=== PATIENT | female | born 1960 | race Caucasian/White ===

== ENCOUNTER 2016-10-30 19:30 | Inpatient (IN) | payer OTHER ==
[~2016-10-30] VITALS: Ht 170.2 cm; Wt 55.1 kg
[~2016-10-30 19:30] MED LIST: AMITIZA24 MICROGR PO; AMITIZA8 MICROGRA PO; Bactrim,Septra DS 80 PO; CELEXA40 MG PO; Claritin,Alavart PO; DECADRON1 MG PO; DITROPAN XL10 MG PO; ENDOCET 5-3251 EACH PO; ESTRACE2 MG PO; FOLIC ACID1 MG PO; HYDROCODONE-AP1 EACH PO; Habitrol,Nicoderm CQ TD; KAPIDEX30 MG PO; LEVO-T125 MCG PO; LEVOTHYROXINE; LIDOCAINE700 MG TD; LYRICA150 MG PO; Levothroid,Synthroid PO; MAGNESIUM400 M1 PO; Mag-Ox PO; NEXIUM; NEXIUM40 MG PO; NORCO 10/3251 TABLET PO; Norco 10/325 PO; OMEPRAZOLE40 M1 PO; OXYBUTYNIN; PERCOCET 10/1 TABLET PO; PLAVIX75 MG PO; PREDNISONE5 MG; PREMARIN; PREMARIN0.45 MG PO; PREMARIN0.625 MG PO; PRISTIQ50 MG PO; PROTONIX40 MG PO; RESTORIL15 MG PO; RESTORIL30 MG PO; SIMVASTATIN; SIMVASTATIN80 MG PO; SYMBICORT60 INHALAT IH; SYNTHROID125 MCG PO; WELLBUTRIN SR150 MG PO; XANAX; XANAX0.5 MG PO; Xanax PO; ZEGERID40 MG PO; ZESTRIL5 MG PO; ZOCOR40 MG PO; ZOVIRAX400 MG PO; Zocor PO; celeXA PO
[2016-10-30 20:47] LABS: HEMATOCRIT 20.4 % (36.0-46.0); MCH 25.3 PG (29.0-34.0); MCHC 29.9 G/DL (30.0-36.0); MCV 84.6 FL (83-99); MEAN PLAT.VOLUME 9.2 uM^3 (9.5-12.4); PLATELET COUNT 421 K/uL (156-360); RBC DIS.WIDTH-CV 16.1 % (11.8-14.6); RBC DIS.WIDTH-SD 49.8 % (39-53); RED BLOOD COUNT 2.41 M/uL (3.80-5.20); WHITE BLOOD COUNT 8.4 K/uL (4.1-10.2)
[2016-10-30 20:50] LABS: CHLORIDE 102 mEq/L (99-109); POTASSIUM 4.6 mEq/L (3.7-5.4); SODIUM 135 mEq/L (136-147)
[2016-10-30 20:51] LABS: GLUCOSE 104 mg/dL (70-99)
[2016-10-30 20:53] LABS: ANION GAP 7 MEQ/L (2-14)
[2016-10-30 20:55] LABS: GFR ESTIMATE (CALCULATED) > 59 mL/min/
[2016-10-30 20:56] LABS: UREA NITROGEN (BUN) 14 mg/dL (9-23)
[2016-10-30 22:10] VITALS: BP 109/54
[2016-10-30 22:28] VITALS: BP 106/42
[2016-10-30] MEDS ORDERED: TIZANIDINE HCL4 MG PO (22:34)
[2016-10-30] MEDS ORDERED: CLOPIDOGREL75 MG PO (22:36)
[2016-10-30] MEDS ORDERED: K-DUR10 MEQ PO (22:37)
[2016-10-30] MEDS ORDERED: ZANTAC300 MG PO (22:46)
[2016-10-30] MEDS ORDERED: CYANOCOBAL1000 MCG/2 IM (22:46)
[2016-10-30 23:27] VITALS: BP 113/60
[2016-10-31] VITALS (9 sets, daily range): BP systolic 101–139; BP diastolic 56–65
[2016-10-31 07:06] LABS: ALKALINE PHOSPHATASE 97 IU/L (3-129); ANION GAP 4 MEQ/L (2-14); CHLORIDE 108 MEQ/L (99-109); GFR ESTIMATE (CALCULATED) > 59 mL/min/; GLUCOSE 80 mg/dL (70-99); POTASSIUM 4.3 MEQ/L (3.7-5.4); SAMPLE HEMOLYSIS CHECK 0; SAMPLE ICTERIC CHECK 0; SAMPLE LIPEMIA CHECK 0; SODIUM 139 MEQ/L (136-147); TOTAL BILIRUBIN 0.3 MG/DL (0.0-1.0); UREA NITROGEN (BUN) 11 mg/dL (9-23)
[2016-10-31 07:12] LABS: HEMATOCRIT 25.9 % (36.0-46.0); MCH 27.3 PG (29.0-34.0); MCV 85.2 FL (83-99); MEAN PLAT.VOLUME 9.1 uM^3 (9.5-12.4); PLATELET COUNT 337 K/uL (156-360); RBC DIS.WIDTH-CV 15.2 % (11.8-14.6); RBC DIS.WIDTH-SD 47.3 % (39-53); RED BLOOD COUNT 3.04 M/uL (3.80-5.20); WHITE BLOOD COUNT 7.6 K/uL (4.1-10.2)
[2016-10-31 12:32] LABS: HEMATOCRIT 26.6 % (36.0-46.0); MCV 85.5 FL (83-99)
[2016-10-31 17:48] LABS: MCV 85.4 FL (83-99)
[2016-11-01 00:07] VITALS: BP 126/60
[2016-11-01 01:15] LABS: HEMATOCRIT 27.5 % (36.0-46.0); MCV 84.4 FL (83-99)
[2016-11-01 03:29] VITALS: BP 119/55
[2016-11-01 06:13] LABS: HEMATOCRIT 28.2 % (36.0-46.0); MCH 27.3 PG (29.0-34.0); MCHC 31.9 G/DL (30.0-36.0); MCV 85.5 FL (83-99); MEAN PLAT.VOLUME 9.3 uM^3 (9.5-12.4); PLATELET COUNT 335 K/uL (156-360); RBC DIS.WIDTH-CV 15.7 % (11.8-14.6); WHITE BLOOD COUNT 8.7 K/uL (4.1-10.2)
[2016-11-01 06:42] LABS: ALKALINE PHOSPHATASE 111 IU/L (3-129); ANION GAP 5 MEQ/L (2-14); CHLORIDE 111 MEQ/L (99-109); GFR ESTIMATE (CALCULATED) > 59 mL/min/; GLUCOSE 95 mg/dL (70-99); SAMPLE HEMOLYSIS CHECK 0; SAMPLE ICTERIC CHECK 0; SAMPLE LIPEMIA CHECK 0; SODIUM 142 MEQ/L (136-147); UREA NITROGEN (BUN) 7 mg/dL (9-23)
[2016-11-01 06:51] LABS: TOTAL BILIRUBIN 0.2 MG/DL (0.0-1.0)
[2016-11-01 08:13] VITALS: BP 117/56
[2016-11-01 11:54] VITALS: BP 105/54
[2016-11-01 15:59] VITALS: BP 99/51
[2016-11-01 19:16] VITALS: BP 133/61
[2016-11-02 00:20] VITALS: BP 116/58
[2016-11-02 06:46] LABS: HEMATOCRIT 30.1 % (36.0-46.0); MCH 27.4 PG (29.0-34.0); MCHC 31.6 G/DL (30.0-36.0); MCV 86.7 FL (83-99); MEAN PLAT.VOLUME 9.4 uM^3 (9.5-12.4); PLATELET COUNT 356 K/uL (156-360); RBC DIS.WIDTH-CV 15.8 % (11.8-14.6); RBC DIS.WIDTH-SD 49.4 % (39-53); RED BLOOD COUNT 3.47 M/uL (3.80-5.20); WHITE BLOOD COUNT 7.3 K/uL (4.1-10.2)
[2016-11-02 07:32] LABS: ALKALINE PHOSPHATASE 116 IU/L (3-129); ANION GAP 8 MEQ/L (2-14); CHLORIDE 110 MEQ/L (99-109); GFR ESTIMATE (CALCULATED) > 59 mL/min/; GLUCOSE 85 mg/dL (70-99); POTASSIUM 4.4 MEQ/L (3.7-5.4); SAMPLE HEMOLYSIS CHECK 0; SAMPLE ICTERIC CHECK 0; SAMPLE LIPEMIA CHECK 0; SODIUM 142 MEQ/L (136-147); TOTAL BILIRUBIN 0.2 MG/DL (0.0-1.0); UREA NITROGEN (BUN) 6 mg/dL (9-23)
[2016-11-02 08:19] VITALS: BP 134/64
[2016-11-02 13:55] VITALS: BP 148/64
[2016-11-02 16:11] VITALS: BP 167/71
[2016-11-02 23:50] VITALS: BP 170/75
[2016-11-03 08:13] VITALS: BP 172/78
[2016-11-03 08:14] VITALS: BP 172/78
[2016-11-03 09:03] LABS: HEMATOCRIT 32.1 % (36.0-46.0); MCH 26.5 PG (29.0-34.0); MCHC 30.8 G/DL (30.0-36.0); MCV 85.8 FL (83-99); MEAN PLAT.VOLUME 9.2 uM^3 (9.5-12.4); PLATELET COUNT 377 K/uL (156-360); RBC DIS.WIDTH-CV 15.2 % (11.8-14.6); RED BLOOD COUNT 3.74 M/uL (3.80-5.20); WHITE BLOOD COUNT 7.8 K/uL (4.1-10.2)
[2016-11-03 09:21] LABS: ANION GAP 8 MEQ/L (2-14); CHLORIDE 110 MEQ/L (99-109); GFR ESTIMATE (CALCULATED) > 59 mL/min/; GLUCOSE 76 mg/dL (70-99); POTASSIUM 3.9 MEQ/L (3.7-5.4); SAMPLE HEMOLYSIS CHECK 0; SAMPLE ICTERIC CHECK 0; SAMPLE LIPEMIA CHECK 0; SODIUM 143 MEQ/L (136-147); UREA NITROGEN (BUN) 6 mg/dL (9-23)
[2016-11-03] MEDS ORDERED: PROTONIX40 MG PO (13:36)
[2016-11-03] MEDS ORDERED: ZOFRAN4 MG PO (13:36)
== END 2016-11-03 15:01 | disposition home or self-care (01) | DRG 384 ==
LOC: EME 19:30 → 3EAST 23:12 → EDOF 23:12 → 3EAST 10-31 01:50
PROVIDERS: Internal Medicine
PROC: 30233N1 Transfusion of Nonautologous Red Blood Cells into Peripheral Vein, Percutaneous Approach (ICD-10-PCS; principal; 2016-10-30)
PROC: 0DB98ZX Excision of Duodenum, Via Natural or Artificial Opening Endoscopic, Diagnostic (ICD-10-PCS; 2016-11-02)
DX: K26.9 Duodenal ulcer, unspecified as acute or chronic, without hemorrhage or perforation (principal); K92.2 Gastrointestinal hemorrhage, unspecified; Z68.43 Body mass index [BMI] 50.0-59.9, adult; E66.01 Morbid (severe) obesity due to excess calories; D64.9 Anemia, unspecified; R19.5 Other fecal abnormalities; M54.9 Dorsalgia, unspecified; K59.00 Constipation, unspecified; D62 Acute posthemorrhagic anemia; M19.90 Unspecified osteoarthritis, unspecified site; F17.200 Nicotine dependence, unspecified, uncomplicated; K21.9 Gastro-esophageal reflux disease without esophagitis; I25.2 Old myocardial infarction; Z98.84 Bariatric surgery status; R11.0 Nausea; K27.9 Peptic ulcer, site unspecified, unspecified as acute or chronic, without hemorrhage or perforation
CPT/HCPCS: 36415; 80048; 80048 91; 80053; 85014; 85018; 85025 GA; 85027; 86900; 86901; 86920; 88305; 88342 TC; 99281; 99285; C9113; J2270; J2405; J7030; J7050; P9016